=== PATIENT | female | born 1955 | race Caucasian/White ===

== ENCOUNTER → 2016-12-06 | Outpatient (CLI) | payer OTHER ==
[~2016-12-06] MED LIST: ASPIR-LOW81 MG PO; METOCLOPRAMIDE10 M5 PO; PRILOSEC20 M1 PO; REGLAN10 M1 PO; SIMVASTATIN40 MG PO; ZESTRIL40 MG PO; ZYRTEC10 M2 PO
--- NOTE | 2016-12-11 10:58 | RADIOLOGY REPORT PS360 ---
DIG MAMM-SCREEN MUKESH W/CAD CAD Screening ORDERING PHYSICIAN : Rogers Aldana MD PATIENT AGE: 61 years GENDER: Female COMPARISON: Previous mammograms: December2012 & film screen 2009 INDICATION: Routine screening 61-year-old. No hormones. Previous stereotactic biopsy left breast. Family history. Sister with breast cancer age 41 premenopausal TECHNIQUE: Standard CC and MLO images were obtained. R2 CAD reviewed. FINDINGS: Lower breast density bilaterally with mild asymmetry.. No dominant mass nor suspicious calcifications either breast RIGHT BREAST: No significant new findings. Areas of density at the superior breast on MLO view and lateral breast on cc view have remained stable when compared to multiple prior studies. No significant new areas of concern overall. Would recommend bilateral follow-up in one year for ongoing evaluation. LEFT BREAST: Left breast stable unchanged. No new areas of concern The metallic marker at upper-outer quadrant left breast from previous stereotactic biopsy noted. IMPRESSION: No significant interval change. Bilateral follow-up in one year recommended & should be encouraged BI-RADS CATEGORY: 2_Benign RECOMMENDED FOLLOWUP: 12M 12 MONTH FOLLOW-UP (A letter has been sent to the patient regarding results of the study.)
== END ==
LOC: RAD 08:03
DX: Z12.31 Encounter for screening mammogram for malignant neoplasm of breast (principal)
CPT/HCPCS: G0202